=== PATIENT | male | born 1965 | race Caucasian/White ===

== ENCOUNTER 2021-08-07 16:02 | Emergency (ER) | payer OTHER, SELFPAY ==
[2021-08-07 16:15] VITALS: BP 150/89; PULSE 68; RESP 16; TEMP 36.7; O2SAT 100
[2021-08-07 16:22] VITALS: BP 150/89; PULSE 68; RESP 16; TEMP 36.7; O2SAT 100
--- NOTE | 2021-08-07 16:30 | ED.SKABFB ---
HPI - Skin/Abscess/Foreign Bdy General Chief complaint: Skin/Abscess/Foreign Body Stated complaint: boil on back of ear History of Present Illness HPI narrative: This a 55-year-old male that presents to the urgent care complaining of a boil that his head and behind his ear has had it for over a week. Patient states that the boil has busted but has been draining and his facial mass rubs against it. Related Data Home Medications Medication Instructions Recorded Confirmed albuterol sulfate 90 mcg INHALATION Q4-6H PRN 08/07/21 08/07/21 metoprolol succinate 25 mg PO DAILY 08/07/21 08/07/21 Allergies Allergy/AdvReac Type Severity Reaction Status Date / Time codeine Allergy Vomiting Verified 08/07/21 16:18 Review of Systems Review of Systems: Left ear drainage and pain All systems reviewed & are unremarkable except as noted in HPI and below PMFSH Comments At time as signature, I have reviewed and agree with nursing past medical, social, surgical and family history. Please see nursing chart for further information. There is no relevant family history pertinent to the presenting complaint. Exam Narrative: GENERAL:Well-appearing, well-nourished, and in no acute distress. HEAD:Normocephalic. EYES: PERRLA ENT: Nares clear, no rhinorrhea or epistaxis. Mucous membranes moist. Left ear behind the earlobe draining when you move the airbag it is cracked reddish drainage noted CHEST: No respiratory distress. HEART: Normal peripheral pulses. EXTREMITIES: Normal range of motion. No edema. SKIN: Warm, dry, no rash. NEURO: No focal deficits. Alert and oriented x3. Course [employer] Physician Supervision Plan 2 x 2 behind the earlobe and placed facemask string on top of the tube Vital Signs Vital signs: Vital Signs Temperature 98.1 F 08/07/21 16:15 Pulse Rate 68 08/07/21 16:15 Respiratory Rate 16 08/07/21 16:15 Blood Pressure 150/89 H 08/07/21 16:15 Pulse Oximetry 100 08/07/21 16:15 Temperature 98.1 F 08/07/21 16:22 Pulse Rate 68 08/07/21 16:22 Respiratory Rate 16 08/07/21 16:22 Blood Pressure 150/89 H 08/07/21 16:22 Pulse Oximetry 100 08/07/21 16:22 MDM - Skin/Abscess/Foreign Bdy Differential Diagnosis Differential diagnosis: Likely abscess of skin or subcutaneous tissue, cellulitis, eczema, insect bites, impetigo and contact dermatitis Discharge Plan Discharge Clinical Impression: Abscess of skin or subcutaneous tissue, Boil, ear, Hypertension Patient Disposition: Home, Self-Care Condition: Stable Instructions: Antibiotic Form, Abscess (ED) Additional Instructions: Warm compresses to the area 20-30 minutes 4-6 times a day and as needed elevate the area if possible antibiotic as directed--finish the medicine tylenol/ibuprofen for as needed for pain Return to the office or seek ER visit if the conditions worsen with symptoms of infection include red streaking, swelling, drainage, high fever and severe pain Use the medication as provided for severe pain--cautiion drowsiness--do not drink alcohol or drive with these medications. caution each tablet contains 325 mg of Tylenol--the maximum dose of Tylenol is 4000 mg in 24 hours. This medication may cause constipation consider starting a laxative at this time Your blood pressure was elevated in the clinic today, I feel that this is due to your acute illness rather than essential hypertension. please follow-up with your regular doctor for further evaluation and monitor for evaluation of hypertension Please ABRAHAN schedule a followup visit with your personal physician with in the next 1-4 weeks for further evaluation and treatment. Also, ask your personal physician to assist you regarding blood pressure. Even blood pressure exceeding 120/80 may indicate pre-hypertension. If your symptoms persist, change or worsen significantly before you can contact your personal physician then please, without delay, go to the emergency department for f
== END 2021-08-07 16:57 | disposition home or self-care (01) ==
PROVIDERS: Emergency Provider Nurse Practitioner Family; PCP Internal Medicine
DX: H66.42 Suppurative otitis media, unspecified, left ear (principal); I10 Essential (primary) hypertension; J45.909 Unspecified asthma, uncomplicated
CPT/HCPCS: 99213; G0463

== ENCOUNTER 2021-10-23 14:55 | Emergency (ER) | payer OTHER, SELFPAY ==
--- NOTE | 2021-10-23 15:01 | ED.URI ---
HPI - URI/Sore Throat General Chief Complaint: Upper Respiratory Infection Stated Complaint: sinus congestion Time Seen by Provider: 10/23/21 15:01 Source: patient and RN notes reviewed History of Present Illness HPI Narrative: Patient is a 55-year-old male who presents the urgent care with complaints of sinus congestion, cough, bilateral ear pain and sore throat. Patient states is been ongoing since he had COVID in 2019 but worse in the last month or so. Patient states that a week and a half ago he went to another urgent care and they placed him on a Z-Patrice. Patient states his symptoms have not resolved. States that he started back on his Dulera inhaler last Friday which has helped some with the wheezing. Patient has been using Sudafed and Mucinex. States that he had a negative Covid test last week. Denies of any recent fevers or ill contacts. No other acute complaints. No acute distress noted. Patient read the plan of care. Some parts of this dictation were generated by voice recognition software and may contain typographical and/or grammatical inaccuracies. Related Data Home Medications Medication Instructions Recorded Confirmed albuterol sulfate 90 mcg INHALATION Q4-6H PRN 08/07/21 10/23/21 metoprolol succinate 25 mg PO DAILY 08/07/21 10/23/21 mometasone-formoterol [Dulera] 2 puff INHALATION Q12H 10/23/21 10/23/21 Allergies Allergy/AdvReac Type Severity Reaction Status Date / Time codeine Allergy Vomiting Verified 08/07/21 16:18 Sulfa (Sulfonamide Allergy Hives Verified 10/23/21 15:18 Antibiotics) Review of Systems Review of Systems: CONSTITUTIONAL: Denies fever, chills, or sweats. EYES: Denies visual changes, redness, or discharge. ENT: Reports of otalgia, sore throat, postnasal drainage and congestion CARDIOVASCULAR: Denies chest pain, palpitations, or edema. RESPIRATORY: Reports of intermittent cough with wheezing GASTROINTESTINAL: Denies abdominal pain, nausea, vomiting, or diarrhea. GENITOURINARY: Denies dysuria or hematuria. SKIN: Denies rash or itching. MUSCULOSKELETAL: Denies back pain, joint pain, or myalgia. NEUROLOGIC: Denies headache, numbness, or weakness. All other systems reviewed are negative, except as documented in HPI. PMFSH Comments At the time of my signature, I reviewed and agree with the nursing past medical, surgical, social, and family history. There is no relevant family history pertinent to the patient complaint. Exam Narrative: GENERAL: This is a well-nourished, well-developed patient, in no apparent distress. HEAD: normocephalic, atraumatic. EYES: PERRL. Sclera clear/white. Vision is grossly intact. EARS: External ears normal, auditory canals clear and without drainage, moderate fluid noted behind bilateral TMs without otitis. TMs normal without perforation. Hearing grossly intact. NOSE: External nose normal with no obvious nasal discharge. Bilateral erythemic nares with clear to yellow rhinorrhea THROAT: Mucous membranes moist, posterior pharynx clear. NECK: Neck supple, non-tender without lymphadenopathy CARDIOVASCULAR: Regular rate and rhythm without murmurs, gallops, or rubs. RESPIRATORY: Expiratory wheezes throughout SKIN: warm, intact with no suspicious lesions or rash, good texture and turgor. NEURO: awake, alert, and oriented to person, place and time. There were no obvious focal neurologic abnormalities. EXTREMITIES: No clubbing, cyanosis, or edema. Course Course Level of Care: Express Care Visit Vital Signs Vital signs: Vital Signs Temperature 97.5 F L 10/23/21 15:10 Pulse Rate 77 10/23/21 15:10 Respiratory Rate 18 10/23/21 15:10 Blood Pressure 156/94 H 10/23/21 15:10 Pulse Oximetry 99 10/23/21 15:10 Temperature 97.5 F L 10/23/21 15:10 Pulse Rate 77 10/23/21 15:10 Respiratory Rate 18 10/23/21 15:10 Blood Pressure 156/94 H 10/23/21 15:10 Pulse Oximetry 99 10/23/21 15:10 Reviewed-patient is informed that they may have pre-hyper
[2021-10-23 15:10] VITALS: BP 156/94; PULSE 77; RESP 18; TEMP 36.4; O2SAT 99
== END 2021-10-23 15:43 | disposition home or self-care (01) ==
PROVIDERS: Emergency Provider Nurse Practitioner Family; PCP Internal Medicine
DX: J32.9 Chronic sinusitis, unspecified (principal); Z86.16 Personal history of COVID-19
CPT/HCPCS: 99213; G0463